=== PATIENT | male | born 1960 | race Caucasian/White ===

== ENCOUNTER 2017-06-28 14:32 | Emergency (ER) | payer MEDICARE, MEDICAID ==
[~2017-06-28] VITALS: Ht 167.6 cm; Wt 77.0 kg
[~2017-06-28 14:32] MED LIST: BACDS PO
[2017-06-28] MEDS ORDERED: doxycycline hyclate 100mg tablet.DR PO ONE (15:30)
[2017-06-28 15:58] LABS: BASOPHILS % (AUTO) 0.4 % (0-1); EOSINOPHILS # (AUTO) 0.1 X10'3 (0-0.9); EOSINOPHILS % (AUTO) 1.1 % (0-6); HEMATOCRIT 42.1 % (42.0-52.0); HEMOGLOBIN 14.3 g/dl (14.0-17.9); LYMPHOCYTES # (AUTO) 1.5 X10'3 (1.1-4.8); LYMPHOCYTES % (AUTO) 21.9 % (21-51); MEAN CORPUSCULAR HEMOGLOBIN 29.9 PG (27.0-31.0); MEAN PLATELET VOLUME 9.2 FL (7.4-10.4); MONOCYTES # (AUTO) 0.7 X10'3 (0-0.9); MONOCYTES % (AUTO) 10.3 % (2-12); NEUTROPHILS # (AUTO) 4.6 X10'3 (1.8-7.7); NEUTROPHILS % (AUTO) 66.3 % (42-75); PLATELET COUNT 204 X10'3 (140-440); RED BLOOD COUNT 4.78 X10'6 (4.70-6.10); RED CELL DISTRIBUTION WIDTH 13.7 % (11.5-14.5); WHITE BLOOD COUNT 6.9 X10'3 (4.5-11.0)
[2017-06-28 16:12] LABS: ALANINE AMINOTRANSFERASE 28 U/L (12-78); ALBUMIN 3.6 G/DL (3.4-5.0); ALKALINE PHOSPHATASE 105 IU/L (46-116); ANION GAP 6 (8-16); ASPARTATE AMINO TRANSFERASE 18 U/L (10-37); BILIRUBIN,TOTAL 0.2 MG/DL (0.1-1.0); BLOOD UREA NITROGEN 15 MG/DL (7-18); BUN/CREATININE RATIO 18.8 (5.4-32.0); CALCIUM 9.2 MG/DL (8.5-10.1); CHLORIDE 105 MMOL/L (99-107); GLUCOSE 108 MG/DL (70-104); POTASSIUM 4.3 MMOL/L (3.5-5.1); SODIUM 140 MMOL/L (135-145); TOTAL CARBON DIOXIDE 29.2 MMOL/L (24-32); TOTAL PROTEIN 7.2 G/DL (6.4-8.2); eGFR > 90 ML/MIN
[2017-06-28] MEDS ORDERED: DOXY100T2 PO (16:34)
[2017-06-28] MEDS ORDERED: HYDROcodone/acetaminophen 10/325mg tab PO ONE (16:35)
[2017-06-28 18:06] VITALS: BP 127/89
== END 2017-06-28 18:00 | disposition home or self-care (01) ==
LOC: ER 14:32
DX: S81.832A Puncture wound without foreign body, left lower leg, initial encounter (principal); L03.116 Cellulitis of left lower limb; F20.9 Schizophrenia, unspecified; X58.XXXA Exposure to other specified factors, initial encounter; Y93.89 Activity, other specified; Y92.89 Other specified places as the place of occurrence of the external cause; Y99.8 Other external cause status
CPT/HCPCS: 36415; 80053; 83605; 84145; 85025; 87040; 87070; 87077; 87186; 99284

== ENCOUNTER 2017-08-11 17:25 | Inpatient (IN) | payer MEDICARE, MEDICAID ==
[~2017-08-11] VITALS: Ht 167.6 cm; Wt 65.0 kg
[~2017-08-11 17:25] MED LIST changes: +DOXY100T2 PO
[2017-08-11] MEDS ORDERED: normal saline 1000ML IV soln IV ONE (18:20)
[2017-08-11 19:02] LABS: BASOPHILS % (AUTO) 0.3 % (0-1); EOSINOPHILS # (AUTO) 0.1 X10'3 (0-0.9); EOSINOPHILS % (AUTO) 1.2 % (0-6); HEMATOCRIT 39.4 % (42.0-52.0); HEMOGLOBIN 13.3 g/dl (14.0-17.9); LYMPHOCYTES # (AUTO) 1.2 X10'3 (1.1-4.8); MEAN CORPUSCULAR HEMOGLOBIN 29.1 PG (27.0-31.0); MEAN CORPUSCULAR HGB CONC 33.8 % (33.0-36.5); MEAN CORPUSCULAR VOLUME 86.1 FL (78-98); MEAN PLATELET VOLUME 8.3 FL (7.4-10.4); MONOCYTES # (AUTO) 0.7 X10'3 (0-0.9); MONOCYTES % (AUTO) 9.6 % (2-12); NEUTROPHILS # (AUTO) 5.4 X10'3 (1.8-7.7); NEUTROPHILS % (AUTO) 72.9 % (42-75); PLATELET COUNT 285 X10'3 (140-440); RED BLOOD COUNT 4.58 X10'6 (4.70-6.10); RED CELL DISTRIBUTION WIDTH 13.9 % (11.5-14.5); WHITE BLOOD COUNT 7.5 X10'3 (4.5-11.0)
[2017-08-11 19:26] LABS: ALANINE AMINOTRANSFERASE 24 U/L (12-78); ALBUMIN 3.2 G/DL (3.4-5.0); ALBUMIN/GLOBULIN RATIO 0.8 (1.1-1.5); ALKALINE PHOSPHATASE 93 IU/L (46-116); ANION GAP 8 (8-16); ASPARTATE AMINO TRANSFERASE 14 U/L (10-37); BILIRUBIN,TOTAL 0.2 MG/DL (0.1-1.0); BLOOD UREA NITROGEN 21 MG/DL (7-18); BUN/CREATININE RATIO 24.4 (5.4-32.0); CALCIUM 9.2 MG/DL (8.5-10.1); CHLORIDE 105 MMOL/L (99-107); CREATININE 0.86 MG/DL (0.60-1.10); ETHANOL < 0.010 GM/DL (0.0-0.010); GLUCOSE 117 MG/DL (70-104); POTASSIUM 4.2 MMOL/L (3.5-5.1); SODIUM 143 MMOL/L (135-145); TOTAL CARBON DIOXIDE 29.7 MMOL/L (24-32); TOTAL PROTEIN 7.4 G/DL (6.4-8.2); eGFR > 90 ML/MIN
[2017-08-11] MEDS ORDERED: iohexol 300mg/ml 100ml inj. ONE (19:35)
[2017-08-11] MEDS ORDERED: normal saline 1000ML IV soln IVB ONE (21:25)
[2017-08-11] MEDS ORDERED: cefTRIAXone 1g/NS 100ml IVPB 100 ML IV ONE (21:25)
[2017-08-11 21:43] LABS: CLARITY,URINE CLEAR (Clear); COLOR,URINE STRAW (Yellow); GLUCOSE, URINE NEGATIVE (Neg); KETONES,URINE NEGATIVE (Neg); LEUKOCYTE ESTERASE ,URINE NEGATIVE (Neg); NITRITES, URINE NEGATIVE (Neg); OCCULT BLOOD,URINE TRACE-INTACT (Neg); PROTEIN,URINE NEGATIVE (Neg); UROBILINOGEN,URINE 0.2 E.U/dL (0.2-1.0)
[2017-08-11 21:47] LABS: URINE AMPHETAMINE SCREEN NEGATIVE (Neg); URINE BARBITUATE SCREEN NEGATIVE (Neg); URINE BENZODIAZEPINES SCREEN NEGATIVE (Neg); URINE CANNABINOID SCREEN NEGATIVE (Neg); URINE COCAINE SCREEN NEGATIVE (Neg); URINE METHADONE SCREEN NEGATIVE (Neg); URINE OPIATE SCREEN NEGATIVE (Neg); URINE PHENCYCLIDINE SCREEN NEGATIVE (Neg)
[2017-08-11 22:01] LABS: UA COLLECTION TYPE CLN CATCH MIDSTREAM
[2017-08-11 22:03] LABS: MUCUS STRANDS FEW /LPF (Neg); RBC,URINE NONE SEEN /HPF (0-2); SQUAMOUS EPITHELIAL CELL,UR FEW /LPF (FEW); WBC,URINE 0-4 /HPF (0-4)
[2017-08-11 22:04] LABS: AMORPHOUS URATES 1+; BACTERIA,URINE NONE SEEN /HPF (Neg)
[2017-08-12] MEDS ORDERED: ketorolac trometh. 30mg/ml inj. IV ONE ×2 (07:10)
[2017-08-12] MEDS ORDERED: ondansetron/PF 4mg/2ml inj IV ONE (07:10)
[2017-08-12] MEDS ORDERED: morphine 4 MG/ML inj SYRINge IV ONE (07:10)
[2017-08-12] MEDS ORDERED: potassium Cl 40MEQ/NS 500ml 500 ML IV PRN ×2 (12:55)
[2017-08-12] MEDS ORDERED: magnesium hydroxide 30ml (MOM) UD suspension PO PRN (12:55)
[2017-08-12] MEDS ORDERED: ondansetron/PF 4mg/2ml inj IV PRN (12:55)
[2017-08-12] MEDS ORDERED: acetaminophen 325mg tablet PO PRN (12:55)
[2017-08-12] MEDS ORDERED: potassium Cl 20 mEq SR tablet PO PRN ×2 (12:55)
[2017-08-12] MEDS ORDERED: magnesium 4gm in 100ml NS 100 ML IV PRN (12:55)
[2017-08-12] MEDS ORDERED: mag hydrox/Alum hydrox/simeth 30ml oral suspension PO PRN (12:55)
[2017-08-12] MEDS ORDERED: magnesium Cl slow-release 64mg tablet PO PRN (12:55)
[2017-08-12] MEDS ORDERED: magnesium 2GM in 50ml NS 50 ML IV PRN (12:55)
[2017-08-12] MEDS: cefTRIAXone 1g/NS 100ml IVPB 100 ML IV SCH (13:44)
[2017-08-12] MEDS: vancomycin/NS 1 GM ADD-VANTAGE 250 ML IV SCH ×2 (14:45→22:15)
[2017-08-12 16:40] VITALS: BP 122/62
[2017-08-12] MEDS ORDERED: NO HOME MEDS (19:47)
[2017-08-12 20:00] VITALS: BP 132/88
[2017-08-12] MEDS: normal saline 1000ml 1,000 ML IV SCH (20:00)
[2017-08-12] MEDS: heparin, porcine 5000 units/ml vial SQ SCH (20:30)
[2017-08-13 05:43] LABS: BASOPHILS % (AUTO) 0.3 % (0-1); EOSINOPHILS # (AUTO) 0.2 X10'3 (0-0.9); EOSINOPHILS % (AUTO) 3.1 % (0-6); HEMATOCRIT 38.6 % (42.0-52.0); HEMOGLOBIN 13.3 g/dl (14.0-17.9); LYMPHOCYTES # (AUTO) 1.5 X10'3 (1.1-4.8); LYMPHOCYTES % (AUTO) 20.5 % (21-51); MEAN CORPUSCULAR HEMOGLOBIN 29.8 PG (27.0-31.0); MEAN CORPUSCULAR HGB CONC 34.5 % (33.0-36.5); MEAN CORPUSCULAR VOLUME 86.5 FL (78-98); MEAN PLATELET VOLUME 8.6 FL (7.4-10.4); MONOCYTES # (AUTO) 0.7 X10'3 (0-0.9); MONOCYTES % (AUTO) 8.8 % (2-12); NEUTROPHILS % (AUTO) 67.3 % (42-75); PLATELET COUNT 249 X10'3 (140-440); RED BLOOD COUNT 4.47 X10'6 (4.70-6.10); RED CELL DISTRIBUTION WIDTH 13.7 % (11.5-14.5); WHITE BLOOD COUNT 7.5 X10'3 (4.5-11.0)
[2017-08-13] MEDS: vancomycin/NS 1 GM ADD-VANTAGE 250 ML IV SCH ×2 (06:05→14:21)
[2017-08-13] MEDS: normal saline 1000ml 1,000 ML IV SCH ×3 (06:06→22:35)
[2017-08-13 06:14] LABS: ALANINE AMINOTRANSFERASE 23 U/L (12-78); ALBUMIN 2.6 G/DL (3.4-5.0); ALBUMIN/GLOBULIN RATIO 0.7 (1.1-1.5); ALKALINE PHOSPHATASE 78 IU/L (46-116); ANION GAP 11 (8-16); ASPARTATE AMINO TRANSFERASE 16 U/L (10-37); BILIRUBIN,TOTAL 0.3 MG/DL (0.1-1.0); BLOOD UREA NITROGEN 12 MG/DL (7-18); CALCIUM 8.2 MG/DL (8.5-10.1); CHLORIDE 108 MMOL/L (99-107); GLUCOSE 98 MG/DL (70-104); MAGNESIUM 1.9 MG/DL (1.5-2.4); POTASSIUM 4.2 MMOL/L (3.5-5.1); SODIUM 143 MMOL/L (135-145); TOTAL CARBON DIOXIDE 24.4 MMOL/L (24-32); TOTAL PROTEIN 6.3 G/DL (6.4-8.2); eGFR > 90 ML/MIN
[2017-08-13 07:00] VITALS: BP 121/74
[2017-08-13] MEDS: K and/or MAG REPLACEMENT MC SCH (08:00)
[2017-08-13] MEDS: cefTRIAXone 1g/NS 100ml IVPB 100 ML IV SCH (09:55)
[2017-08-13] MEDS: heparin, porcine 5000 units/ml vial SQ SCH ×2 (09:56→20:00)
[2017-08-13 12:18] VITALS: BP 120/81
[2017-08-13] MEDS ORDERED: VANCOMYCIN LEVEL IV NR (13:30)
[2017-08-13 20:00] VITALS: BP 133/70
[2017-08-13] MEDS: lactobacillus rhamnosus 10,000 MMU CELLS/CAPSULE PO SCH (20:00)
[2017-08-13] MEDS: vancomycin inj 1,250 MG in normal saline 250ml IV soln 250 ML IV SCH (22:34)
[2017-08-14] VITALS: BP 129/78
[2017-08-14] MEDS: vancomycin inj 1,250 MG in normal saline 250ml IV soln 250 ML IV SCH ×3 (05:44→21:54)
[2017-08-14 08:00] VITALS: BP 132/81
[2017-08-14] MEDS: K and/or MAG REPLACEMENT MC SCH (08:00)
[2017-08-14] MEDS: lactobacillus rhamnosus 10,000 MMU CELLS/CAPSULE PO SCH ×2 (09:28→19:41)
[2017-08-14] MEDS: cefTRIAXone 1g/NS 100ml IVPB 100 ML IV SCH (09:28)
[2017-08-14] MEDS: heparin, porcine 5000 units/ml vial SQ SCH ×2 (09:29→19:41)
[2017-08-14] MEDS: normal saline 1000ml 1,000 ML IV SCH ×2 (10:10→14:28)
[2017-08-14 12:00] VITALS: BP 136/85
[2017-08-14 18:00] VITALS: BP 128/78
[2017-08-14] MEDS ORDERED: VANCOMYCIN LEVEL IV NR (21:30)
[2017-08-14] MEDS: HYDROcodone/acetaminophen 5mg/325mg tablet PO PRN (22:40)
[2017-08-15] VITALS: BP 139/87
[2017-08-15] MEDS: normal saline 1000ml 1,000 ML IV SCH ×2 (03:51→14:24)
[2017-08-15] MEDS ORDERED: vancomycin/NS 1 GM ADD-VANTAGE 250 ML IV SCH ×2 (06:00)
[2017-08-15] MEDS: K and/or MAG REPLACEMENT MC SCH (06:28)
[2017-08-15 07:00] VITALS: BP 137/82
[2017-08-15] MEDS: cefTRIAXone 1g/NS 100ml IVPB 100 ML IV SCH (08:14)
[2017-08-15] MEDS: lactobacillus rhamnosus 10,000 MMU CELLS/CAPSULE PO SCH ×2 (08:14→21:45)
[2017-08-15] MEDS: heparin, porcine 5000 units/ml vial SQ SCH ×2 (08:14→21:45)
[2017-08-15] MEDS: HYDROcodone/acetaminophen 5mg/325mg tablet PO PRN ×2 (08:21→14:23)
[2017-08-15 11:00] VITALS: BP 128/84
[2017-08-15] MEDS: vancomycin/NS 1 GM ADD-VANTAGE 250 ML IV SCH ×2 (14:24→21:44)
[2017-08-15 19:30] VITALS: BP 121/78
[2017-08-16] VITALS: BP 114/80
[2017-08-16] MEDS: normal saline 1000ml 1,000 ML IV SCH ×3 (03:26→22:10)
[2017-08-16] MEDS ORDERED: VANCOMYCIN LEVEL IV ONE (04:30)
[2017-08-16] MEDS: vancomycin/NS 1 GM ADD-VANTAGE 250 ML IV SCH (05:15)
[2017-08-16 05:39] LABS: ALANINE AMINOTRANSFERASE 30 U/L (12-78); ALBUMIN 2.6 G/DL (3.4-5.0); ALBUMIN/GLOBULIN RATIO 0.7 (1.1-1.5); ALKALINE PHOSPHATASE 73 IU/L (46-116); ANION GAP 10 (8-16); ASPARTATE AMINO TRANSFERASE 22 U/L (10-37); BILIRUBIN,TOTAL 0.4 MG/DL (0.1-1.0); BLOOD UREA NITROGEN 9 MG/DL (7-18); BUN/CREATININE RATIO 11.5 (5.4-32.0); CALCIUM 8.5 MG/DL (8.5-10.1); CHLORIDE 107 MMOL/L (99-107); CREATININE 0.78 MG/DL (0.60-1.10); GLUCOSE 94 MG/DL (70-104); POTASSIUM 3.9 MMOL/L (3.5-5.1); SODIUM 141 MMOL/L (135-145); TOTAL PROTEIN 6.5 G/DL (6.4-8.2); eGFR > 90 ML/MIN
[2017-08-16 05:41] LABS: VANCOMYCIN,TROUGH 21.8 UG/ML (6.0-14.0)
[2017-08-16 07:14] VITALS: BP 125/80
[2017-08-16] MEDS: K and/or MAG REPLACEMENT MC SCH (08:00)
[2017-08-16] MEDS: lactobacillus rhamnosus 10,000 MMU CELLS/CAPSULE PO SCH ×2 (08:21→19:19)
[2017-08-16] MEDS: heparin, porcine 5000 units/ml vial SQ SCH ×2 (08:22→19:19)
[2017-08-16] MEDS: cefTRIAXone 1g/NS 100ml IVPB 100 ML IV SCH (08:22)
[2017-08-16] MEDS ORDERED: vancomycin inj 1,250 MG in normal saline 250ml IV soln 250 ML IV SCH (10:00)
[2017-08-16 11:00] VITALS: BP 116/72
[2017-08-16] MEDS ORDERED: vancomycin/NS 1 GM ADD-VANTAGE 250 ML IV SCH (11:00)
[2017-08-16 18:00] VITALS: BP 126/67
[2017-08-16] MEDS: clindamycin 600mg/D5W 50ml 50 ML IV SCH (19:17)
[2017-08-17] VITALS: BP 106/69
[2017-08-17] MEDS: clindamycin 600mg/D5W 50ml 50 ML IV SCH ×4 (02:00→19:24)
[2017-08-17] MEDS: normal saline 1000ml 1,000 ML IV SCH ×2 (02:01→13:56)
[2017-08-17 07:09] VITALS: BP 118/63
[2017-08-17] MEDS: K and/or MAG REPLACEMENT MC SCH (08:00)
[2017-08-17] MEDS: HYDROcodone/acetaminophen 5mg/325mg tablet PO PRN (08:19)
[2017-08-17] MEDS: lactobacillus rhamnosus 10,000 MMU CELLS/CAPSULE PO SCH ×2 (08:19→19:24)
[2017-08-17] MEDS: heparin, porcine 5000 units/ml vial SQ SCH ×2 (08:20→19:25)
[2017-08-17] MEDS ORDERED: VANCOMYCIN LEVEL IV ONE (08:30)
[2017-08-17 11:00] VITALS: BP 120/65
[2017-08-17 20:00] VITALS: BP 106/67
[2017-08-18] VITALS: BP 121/73
[2017-08-18] MEDS: clindamycin 600mg/D5W 50ml 50 ML IV SCH ×4 (01:59→19:55)
[2017-08-18] MEDS: normal saline 1000ml 1,000 ML IV SCH ×2 (04:13→18:20)
[2017-08-18 07:00] VITALS: BP 97/50
[2017-08-18] MEDS: pantoprazole 40 MG vial IV SCH (07:58)
[2017-08-18] MEDS: lactobacillus rhamnosus 10,000 MMU CELLS/CAPSULE PO SCH ×2 (07:59→19:55)
[2017-08-18] MEDS: heparin, porcine 5000 units/ml vial SQ SCH ×2 (07:59→19:55)
[2017-08-18] MEDS: K and/or MAG REPLACEMENT MC SCH (08:00)
[2017-08-18 11:37] VITALS: BP 111/66
[2017-08-18 20:00] VITALS: BP 105/66
[2017-08-19] MEDS: clindamycin 600mg/D5W 50ml 50 ML IV SCH ×3 (01:45→14:00)
[2017-08-19 05:21] LABS: ALANINE AMINOTRANSFERASE 40 U/L (12-78); ALBUMIN 2.9 G/DL (3.4-5.0); ALBUMIN/GLOBULIN RATIO 0.7 (1.1-1.5); ALKALINE PHOSPHATASE 77 IU/L (46-116); ANION GAP 8 (8-16); ASPARTATE AMINO TRANSFERASE 25 U/L (10-37); BILIRUBIN,TOTAL 0.3 MG/DL (0.1-1.0); BLOOD UREA NITROGEN 13 MG/DL (7-18); BUN/CREATININE RATIO 15.7 (5.4-32.0); CALCIUM 8.7 MG/DL (8.5-10.1); CHLORIDE 107 MMOL/L (99-107); CREATININE 0.83 MG/DL (0.60-1.10); GLUCOSE 98 MG/DL (70-104); POTASSIUM 4.1 MMOL/L (3.5-5.1); SODIUM 142 MMOL/L (135-145); TOTAL CARBON DIOXIDE 26.8 MMOL/L (24-32); eGFR > 90 ML/MIN
[2017-08-19 07:00] VITALS: BP 108/67
[2017-08-19] MEDS: pantoprazole 40 MG vial IV SCH (08:00)
[2017-08-19] MEDS: K and/or MAG REPLACEMENT MC SCH (08:00)
[2017-08-19] MEDS: heparin, porcine 5000 units/ml vial SQ SCH ×3 (08:00→20:44)
[2017-08-19] MEDS: lactobacillus rhamnosus 10,000 MMU CELLS/CAPSULE PO SCH ×2 (09:40→20:43)
[2017-08-19 11:00] VITALS: BP 101/66
[2017-08-19] MEDS ORDERED: CLIN300C12 PO (16:30)
[2017-08-19 20:00] VITALS: BP 102/65
[2017-08-19] MEDS: clindamycin 150mg capsule PO SCH (20:43)
[2017-08-20] VITALS: BP 108/62
[2017-08-20] MEDS ORDERED: pantoprazole 40mg Tablet.DR PO SCH (07:30)
[2017-08-20 07:41] VITALS: BP 114/63
[2017-08-20] MEDS: clindamycin 150mg capsule PO SCH ×2 (08:00)
[2017-08-20] MEDS: K and/or MAG REPLACEMENT MC SCH (08:00)
[2017-08-20] MEDS: heparin, porcine 5000 units/ml vial SQ SCH (08:00)
[2017-08-20] MEDS: lactobacillus rhamnosus 10,000 MMU CELLS/CAPSULE PO SCH (09:10)
== END 2017-08-20 14:01 | disposition home or self-care (01) | DRG 602 ==
LOC: ER 17:26 → ED HOLD 08-12 12:53 → ORTHO 4S 08-12 16:52 → SUR 3N 08-12 19:51 → UNDODISIN 08-13 14:30
PROVIDERS: ADMIT Internal Medicine; ATTEND Internal Medicine
PROC: BQ2S1ZZ Computerized Tomography (CT Scan) of Left Lower Extremity using Low Osmolar Contrast (ICD-10-PCS; principal; 2017-08-11)
DX: L03.116 Cellulitis of left lower limb (principal); G92 Toxic encephalopathy; L97.829 Non-pressure chronic ulcer of other part of left lower leg with unspecified severity; F20.9 Schizophrenia, unspecified; L03.115 Cellulitis of right lower limb; Z60.2 Problems related to living alone; Z53.20 Procedure and treatment not carried out because of patient's decision for unspecified reasons; Z91.19 Patient's noncompliance with other medical treatment and regimen
CPT/HCPCS: 36415; 71046; 73701; 80053; 80202; 80305; 80320; 81001; 83605; 83735; 84443; 85025; 87040; 87070; 93005; 96365; 96366; 96368; 96375; 96376; 97116; 97161; 97530; 99285; A6213; A6446; A6449; C9113; J0696; J1644; J1885; J2270; J2405; J3370; J3490; J7030; Q9967